=== PATIENT | female | born 1995 | race Caucasian/White ===

== ENCOUNTER 2018-02-06 22:44 | Emergency (ER) | payer OTHER ==
[2018-02-06] MEDS ORDERED: DIPHTH/TETANUS/ACEL. PERTUSSIS IM ONLY ONE (23:15)
--- NOTE | 2018-02-06 23:15 | ER Report ---
History and Physical Time Seen By MD: 23:11 Hx. of Stated Complaint: pt cut herself on an old renee tomato cage about a week ago. now feels like jaw is swelling. pt is unsure of when he last tentus shot was HPI/ROS CHIEF COMPLAINT: Right facial numbness HISTORY OF PRESENT ILLNESS: 22-year-old female presents ambulatory to the ER concerned she might be developing tetanus. Patient states she scratched her left leg on a renee tomato cage. Patient was searching on the Internet for symptoms of tetanus. She thinks she might have some right facial swelling or numbness. Patient denies fever or chills. Patient states tonight her leg is healed up in the last 4 days REVIEW OF SYSTEMS: Respiratory: No cough, no dyspnea. Cardiovascular: No chest pain, no palpitations. Gastrointestinal: No vomiting, no abdominal pain. Musculoskeletal: No back pain. Allergies: Coded Allergies: No Known Drug Allergies (Unverified , 02/06/18) Home Meds No Active Prescriptions or Reported Meds Reviewed Nurses Notes: Yes Old Medical Records Reviewed: Yes Hx Substance Use Disorder: No Hx Alcohol Use: No Constitutional Vital Sign - Last 24 Hours 02/06/18 02/06/18 02/06/18 02/06/18 22:44 22:47 22:49 22:59 Temp 97.7 Pulse ??? 80 90 Resp 16 B/P (MAP) 130/92 (105) 130/92 Pulse Ox 96 96 O2 Delivery Room Air 02/06/18 02/06/18 02/06/18 02/06/18 23:00 23:14 23:29 23:30 Pulse 79 77 B/P (MAP) 118/97 (104) 123/81 (95) Pulse Ox 98 97 Physical Exam Vital signs stable, afebrile, pulse ox normal General Appearance: The patient is alert, has no immediate need for airway protection and no current signs of toxicity. HEENT: Pupils equal and round no injection. TMs normal, TMJs nontender, oropharynx without dental disease. Respiratory: Chest is non tender, lungs are clear to auscultation. Cardiac: regular rate and rhythm Gastrointestinal: Abdomen is soft and non tender, no masses, bowel sounds normal. Musculoskeletal: Neck: Neck is supple and non tender. Extremities have full range of motion and are non tender. Skin: No rashes or lesions. DIFFERENTIAL DIAGNOSIS: After history and physical exam differential diagnosis was considered for facial numbness, paresthesia, anxiety, open wound wound Medical Decision Making ED Course/Re-evaluation ED Course Patient was admitted to an examination room. H&P was done. The differential diagnosis was considered. On clinical examination. Patient has no findings. Her leg wound is well-healed. She's given a tetanus booster to update her status. Decision to Disposition Date: Feb 06, 2018 Decision to Disposition Time: 23:17 Depart Departure Latest Vital Signs Vital Signs Date Time Temp Pulse Resp B/P (MAP) Pulse Ox O2 Delivery O2 Flow Rate FiO2 02/06/18 23:30 123/81 (95) 02/06/18 23:29 77 97 02/06/18 22:49 97.7 16 Room Air Impression: Primary Impression: Facial numbness Additional Impression: Abrasion of leg, left Condition: Improved Disposition: HOME OR SELF-CARE Referrals: DELFINO BENITEZ MD New Scripts No Active Prescriptions or Reported Meds Patient Instructions: Acute Wound Care (ED) Additional Instructions: Follow-up with primary care if unimproved in 3-5 days Problem Qualifiers Additional Impression: Abrasion of leg, left Encounter type: initial encounter Qualified Codes: S80.812A - Abrasion, left lower leg, initial encounter HILARY MEDINA DO Feb 06, 2018 23:15
[2018-02-06 23:30] VITALS: BP 123/81
== END 2018-02-06 23:34 | disposition home or self-care (01) ==
LOC: ER 23:14
DX: R20.0 Anesthesia of skin (principal); S80.812A Abrasion, left lower leg, initial encounter
CPT/HCPCS: 90471; 90715; 99283